=== PATIENT | female | born 1975 | race Caucasian/White ===

== ENCOUNTER 2018-06-10 10:45 | Emergency (ER) | payer SELFPAY ==
[2018-06-10 10:54] VITALS: BP 146/81
[2018-06-10] MEDS ORDERED: CIPROFLOXACIN HCL 500 MG TABLET PO ONE (11:32)
[2018-06-10] MEDS ORDERED: LIDOCAINE 1% INJ-PF (10 MG/ML) 30 ML SDV INJ ONE (11:32)
[2018-06-10] MEDS ORDERED: AZITHROMYCIN 1 GM SUSP PACKET PO ONE (11:32)
[2018-06-10] MEDS ORDERED: CEFTRIAXONE INJ 250 MG VIAL IM ONE (11:32)
--- NOTE | 2018-06-10 11:34 | ER Document Report ---
ED Medical Screen (RME) - General Chief Complaint: Abdominal Pain Stated Complaint: VAGINAL PAIN, PAINFUL URINATION Time Seen by Provider: 06/10/18 11:31 Notes: 42 years old female with a history of STD presents today with yellow discharge, difficulty in urinary function, burning sensation, itching and pain over the vulvovaginal region per the last few days. TRAVEL OUTSIDE OF THE [place] IN LAST 30 DAYS: No - Related Data Allergies/Adverse Reactions: No Known Allergies Allergy (Unverified 06/10/18 10:48) Past Medical History - Social History Chew tobacco use (# tins/day): No Frequency of alcohol use: Occasional Drug Abuse: None Renal/ Medical History: Denies: Hx Peritoneal Dialysis Past Surgical History: Reports: Hx Appendectomy, Hx Tubal Ligation Physical Exam - Vital signs Vitals: Temp Pulse Resp BP Pulse Ox 98.0 F 74 16 146/81 H 98 06/10/18 10:52 06/10/18 10:52 06/10/18 10:52 06/10/18 10:52 06/10/18 10:52 Course - Vital Signs Vital signs: Temp Pulse Resp BP Pulse Ox 98.0 F 74 16 146/81 H 98 06/10/18 10:52 06/10/18 10:52 06/10/18 10:52 06/10/18 10:52 06/10/18 10:52
[2018-06-10 12:14] LABS: AMORPHOUS SEDIMENT,URINE TRACE /HPF; CALCIUM OXALATE CRYSTALS,URINE MANY /HPF
[2018-06-10 12:17] LABS: APPEARANCE,URINE SLIGHTLY-CLOUDY; BILIRUBIN,URINE MODERATE (NEGATIVE); COLOR,URINE AMBER; GLUCOSE, URINE NEGATIVE (NEGATIVE); KETONES,URINE NEGATIVE (NEGATIVE)
[2018-06-10 12:19] LABS: LEUKOCYTE ESTERASE,URINE LARGE (NEGATIVE); NITRITE,URINE NEGATIVE (NEGATIVE); PROTEIN,URINE 100 mg/dL (NEGATIVE)
[2018-06-10 13:42] LABS: CHLAM PCR DETECTED (NOT DETECT); GON PCR DETECTED (NOT DETECT)
== END 2018-06-10 12:40 | disposition left against medical advice (07) ==
LOC: ER 10:45
DX: R10.2 Pelvic and perineal pain (principal); L29.9 Pruritus, unspecified; R30.9 Painful micturition, unspecified; Z53.20 Procedure and treatment not carried out because of patient's decision for unspecified reasons; Z90.49 Acquired absence of other specified parts of digestive tract; Z98.51 Tubal ligation status
CPT/HCPCS: 99281; 96372; 81025; 81001; 87491; 87591; J3490; Q0144; J0696